=== PATIENT | female | born 1950 ===

== ENCOUNTER → 2017-11-04 | Outpatient (CLI) | payer OTHER ==
[~2017-11-04] MED LIST: ALPR-411 PO; ANAS1TAB19 PO; CLTP PO; MULT-506 PO; VITA400C15 PO
[2017-11-04 13:30] LABS: ALBUMIN 3.8 gm/dl (3.4-5.0); ALT/SGPT 28 U/L (12-78); BLOOD UREA NITROGEN 17 mg/dl (7-18); CALCIUM 9.3 mg/dl (8.5-10.1); CARBON DIOXIDE 26 mmol/L (21-32); CHOLESTEROL 221 mg/dl (0-200); CREATININE 0.96 mg/dl (0.60-1.20); GLUCOSE 91 mg/dl (70-99); POTASSIUM 3.9 mmol/L (3.5-5.1); SODIUM 140 mmol/L (136-145)
[2017-11-04 13:36] LABS: ALKALINE PHOSPHATASE 160 U/L (45-117); AST/SGOT 34 U/L (15-37); LDL CHOLESTEROL CALCULATED 130 mg/dl; TOTAL PROTEIN 7.5 gm/dl (6.4-8.2)
== END | disposition home or self-care (01) ==
LOC: C.LABMFLN 09:08
PROVIDERS: ATTEND Family Medicine
DX: I10 Essential (primary) hypertension (principal); E78.00 Pure hypercholesterolemia, unspecified; M85.80 Other specified disorders of bone density and structure, unspecified site

== ENCOUNTER → 2018-05-10 | Outpatient (CLI) | payer OTHER ==
[~2018-05-10] MED LIST changes: -ANAS1TAB19 PO; +ANAS1TAB59 PO
== END | disposition home or self-care (01) ==
LOC: C.LABMFLN 09:48
PROVIDERS: ATTEND Family Medicine
DX: E78.00 Pure hypercholesterolemia, unspecified (principal)